=== PATIENT | female | born 1970 | race Caucasian/White ===

== ENCOUNTER 2021-07-12 09:09 | Emergency (ER) | payer OTHER, SELFPAY ==
[2021-07-12 10:05] VITALS: BP 124/74; PULSE 90; RESP 18; TEMP 37.3; O2SAT 100; BMI 33.3
[2021-07-12 10:21] LABS: COVID-19 Test Positive (Negative)
--- NOTE | 2021-07-12 10:46 | ED_ITS ---
HPI - General Adult General Chief complaint: Upper Respiratory Symptoms Stated complaint: Sorethroat/chills/body aches Time Seen by Provider: 07/12/21 10:41 History of Present Illness HPI narrative: Patient complains of runny nose body aches mild cough runny nose and mild sore throat, she is fully vaccinated and does work at a [email or web address] with many coworkers Related Data Allergies Allergy/AdvReac Type Severity Reaction Status Date / Time brompheniramine Allergy Rash Verified 07/12/21 10:04 [From [facility] DM Cold-Cough (PE)] dextromethorphan Allergy Rash Verified 07/12/21 10:04 [From [facility] DM Cold-Cough (PE)] phenylephrine Allergy Rash Verified 07/12/21 10:04 [From [facility] DM Cold-Cough (PE)] Review of Systems Review of Systems: Positive for runny nose mild cough and body aches Negatives are no fever no chills no dizziness or weakness no headache no neck pain no stiff neck no sore throat no chest pain no shortness of breath no sputum no abdominal pain no nausea vomiting or diarrhea Yes all other systems are reviewed and are negative PMFSH Past Medical History Source: nursing notes reviewed Social History Social History Advance Directives: Yes Advance Directives Information Provided: Yes Advance Directives on File: No Physical Exam Vital Signs: Vital Signs: Last Vital Signs Temp 99.1 F 07/12/21 10:05 Pulse 90 07/12/21 10:05 Resp 18 07/12/21 10:05 BP 124/74 07/12/21 10:05 Pulse Ox 100 07/12/21 10:05 BMI result Body Mass Index 33.3 General appearance no acute distress Eyes no redness or discharge The pharynx is clear with no redness swelling or exudate, mucous membranes moist Neck is supple Chest clear to auscultation bilateral Heart no murmur Extremities full range of motion x4 Course Course Course Narrative: Well-appearing patient with COVID is discharged with warnings to quarantine Medical Decision Making Lab Data Labs: Lab Results 07/12/21 Range/Units 10:06 COVID-19 (IDRIS) Positive A (Negative) COVID-19 Clin Com See Note Discharge Plan Discharge Clinical Impression: COVID-19 Patient Disposition: Home, Self-Care Additional Instructions: You tested positive for COVID This is very contagious so quarantine for 10 days, no work for 10 days Tylenol or Motrin for aches and pains Drink plenty fluids Return any time for difficulty breathing any worse condition or any concerns Stand Alone Forms: Work/School Release Interventions: ED Discharge Assessment Last Done: 07/12/21 10:52 Discharge Date/Time: 07/12/21 10:53
== END 2021-07-12 10:53 | disposition home or self-care (01) ==
PROVIDERS: Emergency Provider Emergency Medicine; PCP Internal Medicine
DX: U07.1 COVID-19 (principal)
CPT/HCPCS: 36415; 87635; 99282; 99283